=== PATIENT | female | born 1960 | race Caucasian/White ===

== ENCOUNTER 2018-05-30 15:38 | Emergency (ER) | payer BC ==
[~2018-05-30] VITALS: Ht 162.6 cm; Wt 63.6 kg
[2018-05-30 16:00] VITALS: BP 134/84
[2018-05-30] MEDS ORDERED: HYDROcodone/acetaminophen 10/325mg tab PO ONE (16:05)
[2018-05-30] MEDS ORDERED: ondansetron 4mg rapidly disintigrating tab PO ONE (16:05)
[2018-05-30] MEDS ORDERED: ONDA4TAB9 SL (16:41)
[2018-05-30] MEDS ORDERED: HYDR-4383 PO (16:41)
== END 2018-05-30 17:18 | disposition home or self-care (01) ==
LOC: ER 15:41
DX: S62.301A Unspecified fracture of second metacarpal bone, left hand, initial encounter for closed fracture (principal); S62.303A Unspecified fracture of third metacarpal bone, left hand, initial encounter for closed fracture; S62.305A Unspecified fracture of fourth metacarpal bone, left hand, initial encounter for closed fracture; S62.102A Fracture of unspecified carpal bone, left wrist, initial encounter for closed fracture; Z88.2 Allergy status to sulfonamides; Z79.899 Other long term (current) drug therapy; W18.39XA Other fall on same level, initial encounter; Y93.89 Activity, other specified; Y92.89 Other specified places as the place of occurrence of the external cause; Y99.8 Other external cause status
CPT/HCPCS: 29125; 73130; 99284